=== PATIENT | female | born 1960 | race Caucasian/White ===

== ENCOUNTER 2019-03-13 01:56 | Outpatient (CLI) | payer BC, SELFPAY ==
[2019-03-13 08:47] LABS: RBC 4.57 m/cumm (4.00-5.20)
[2019-03-13 09:48] LABS: ALT 30 U/L (14-59); AST 16 U/L (15-37); Albumin 3.6 g/dL (3.4-5.0); Alkaline Phosphatase 99 U/L (46-116); Anion Gap 12.6 mmol/L (3-11); BUN 13 mg/dL (7-18); Bilirubin, Total 0.5 mg/dL (0.2-1.0); CO2 24.4 mmol/L (21.0-32.0); CREATININE 0.83 mg/dL (0.55-1.02); Calcium 8.9 mg/dL (8.5-10.1); Calculated LDL 115 mg/dL; Chloride 107 mmol/L (98-107); Cholesterol 215 mg/dL (<200); Glucose 109 mg/dL (74-106); HDL Cholesterol 91 mg/dL (40-60); Potassium 4.3 mmol/L (3.5-5.1); Sodium 144 mmol/L (136-145); Total Protein 6.6 g/dL (6.4-8.2); Triglyceride 47 mg/dL (<150)
[2019-03-13 10:35] LABS: TSH 1.29 uIU/mL (0.36-3.74); Vitamin B12 570 pg/mL (193-986)
[2019-03-13 14:57] LABS: FREE T4 0.85 ng/dL (0.76-1.46)
[2019-03-13 17:46] LABS: T3,Free 3.4 pg/mL (2.8-5.3)
== END 2019-03-13 02:16 ==
PROVIDERS: PCP Nurse Practitioner; Visit Provider Naturopath
DX: Z00.00 Encounter for general adult medical examination without abnormal findings (principal); R53.83 Other fatigue; N95.1 Menopausal and female climacteric states
CPT/HCPCS: 36415; 80053; 80061; 82306; 82607; 83735; 84439; 84443; 84481; 85041

== ENCOUNTER 2020-02-25 15:19 | Outpatient (REF) | payer BC, SELFPAY ==
--- NOTE | 2020-02-25 10:35 | PAPFT_PTH ---
PATIENT: Sheela Huntley LOC: SON U#:[id number] AGE/SX: 59/F ROOM: RE02/25/[address]: Karie Johansen DO : 1960 BED: DIS: 02/25/2020 SPEC #: [id number] RECD: 02/25/20 18:40 STATUS: AJ REQ #: [id number] DRU: 02/25/20 10:[address]: Karie Johansen DEPT: [facility] Cytology RECD BY: Ying Gonzalez ENTERED: 02/25/20 18:41 SP TYPE: PAPFT OTHR DR: Kathryn Lopez DO Tissues: 1 - CX/ENDOCX FOR PAP SMEARS Procedures: PAP THIN PREP/UVM Screening HPV DNA PROBE Comments: [id number]
== END 2020-02-25 15:39 ==
LOC: LBN 15:19
PROVIDERS: PCP Student in an Organized Health Care Education/Training Program; Visit Provider Obstetrics & Gynecology
DX: Z12.4 Encounter for screening for malignant neoplasm of cervix (principal); Z11.51 Encounter for screening for human papillomavirus (HPV); Z87.410 Personal history of cervical dysplasia
CPT/HCPCS: 88142; 87624

== ENCOUNTER 2020-03-14 04:16 | Outpatient (CLI) | payer BC, SELFPAY ==
--- NOTE | 2020-03-14 12:30 | DI.MAMMO_ITS ---
EXAM: MG MAMMO SCREENING CLINICAL HISTORY: screening TECHNIQUE: Bilateral full field digital CC and MLO mammographic images were obtained with 3D tomosyn thesis and utilizing computer aided detection (CAD). COMPARISON: Available for comparison. FINDINGS: Masses/Architectural Distortion: None seen. Microcalcifications: No suspicious pleomorphic-type are seen. Skin Thickening/Nipple Retraction: None. IMPRESSION: 1. No significant interval change with no specific features of malignancy noted. 2. Unless there is more urgent need, screening mammography is recommended, as per [place] [employer] guidelines. BI-RADS Category 1 - Negative Breast Density - Category C - Heterogeneously dense Breast density category C or D implies that the patient has dense breast tissue. Dense breast tissue is very common and is not abnormal but dense breast tissue can make it harder to find cancer on a ma mmogram. Also, dense breast tissue may increase their breast cancer risk. This information about the result of the mammogram report was provided to the patient to raise their awareness. Use this report when you speak with the patient about their risks for breast cancer, which includes their family hist ory. At that time, you may recommend for more screening tests (Ultrasound or MRI) as they might be us eful based on their risk. A negative radiographic report should not delay biopsy if a dominant or clinically suspicious mass is present. Up to ten percent of cancers are not identified on mammography. A negative report may reinforce clinical impression. Adenosis and dense breasts may obscure an underlying neoplasm. False positive reports average 6 to 10%. Patient will receive a letter notifying them of these results.
== END 2020-03-14 04:36 ==
PROVIDERS: PCP Student in an Organized Health Care Education/Training Program; Visit Provider Obstetrics & Gynecology
DX: Z12.31 Encounter for screening mammogram for malignant neoplasm of breast (principal)
CPT/HCPCS: 77063; 77067

== ENCOUNTER 2020-04-08 03:16 | Outpatient (CLI) | payer BC, SELFPAY ==
[2020-04-08 09:00] LABS: Anion Gap 5.4 mmol/L (3-11); BUN 15 mg/dL (7-18); CO2 29.6 mmol/L (21.0-32.0); CREATININE 0.9 mg/dL (0.55-1.02); Calcium 9.1 mg/dL (8.5-10.1); Calculated LDL 120 mg/dL (<100); Chloride 104 mmol/L (98-107); Cholesterol 235 mg/dL (<200); Glucose 101 mg/dL (74-106); HDL Cholesterol 103 mg/dL (40-60); Potassium 4.6 mmol/L (3.5-5.1); Sodium 139 mmol/L (136-145); Triglyceride 60 mg/dL (<150)
== END 2020-04-08 03:17 | disposition home or self-care (01) ==
LOC: LBO 03:16
PROVIDERS: PCP Student in an Organized Health Care Education/Training Program; Visit Provider Student in an Organized Health Care Education/Training Program
DX: E86.0 Dehydration (principal); Z13.1 Encounter for screening for diabetes mellitus; Z13.220 Encounter for screening for lipoid disorders
CPT/HCPCS: 36415; 80048; 80061

== ENCOUNTER 2020-10-30 03:44 | Outpatient (CLI) | payer BC, SELFPAY ==
[2020-10-30 10:48] LABS: ALT 26 U/L (14-59); AST 8 U/L (15-37); Alkaline Phosphatase 110 U/L (46-116); Anion Gap 9.7 mmol/L (3-11); BUN 12 mg/dL (7-18); Bilirubin, Total 0.7 mg/dL (0.2-1.0); CO2 27.3 mmol/L (21.0-32.0); CREATININE 0.7 mg/dL (0.55-1.02); Calcium 9.1 mg/dL (8.5-10.1); Chloride 104 mmol/L (98-107); Glucose 110 mg/dL (74-106); Potassium 4.3 mmol/L (3.5-5.1); Sodium 141 mmol/L (136-145); Total Protein 7.1 g/dL (6.4-8.2)
== END 2020-10-30 03:45 | disposition home or self-care (01) ==
LOC: LBO 03:44
PROVIDERS: PCP Student in an Organized Health Care Education/Training Program; Visit Provider Student in an Organized Health Care Education/Training Program
DX: E86.0 Dehydration (principal); K58.9 Irritable bowel syndrome, unspecified
CPT/HCPCS: 36415; 80053

== ENCOUNTER 2021-01-15 12:41 | Outpatient (CLI) | payer BC, SELFPAY ==
--- NOTE | 2021-01-15 09:45 | DI.RAD_ITS ---
Exam(s) XR THUMB LT EXAM: XR THUMB LT CLINICAL HISTORY: Left thumb CMC OA. TECHNIQUE: 2D digital imaging was performed. COMPARISON: None. FINDINGS: BONES: No acute fracture is present. No bony destructive lesion is seen. JOINTS: No dislocation present. Severe narrowing 1st carpal metacarpal joint. Moderate periarticula r spurring. Mild degenerative changes interphalangeal joint. SOFT TISSUE: Normal. IMPRESSION: Moderate to severe degenerative changes at the 1st carpal metacarpal joint. DATA REPOSITORY: RADIATION DOSE DELIVERED:
== END 2021-01-15 12:42 | disposition home or self-care (01) ==
LOC: DIORS 12:41
PROVIDERS: PCP Student in an Organized Health Care Education/Training Program; Referring Provider Student in an Organized Health Care Education/Training Program; Visit Provider Student in an Organized Health Care Education/Training Program
DX: M18.12 Unilateral primary osteoarthritis of first carpometacarpal joint, left hand (principal)
CPT/HCPCS: 73140

== ENCOUNTER 2021-05-06 01:44 | Outpatient (CLI) | payer BC, SELFPAY ==
[2021-05-06 07:51] LABS: HCT 44.4 % (36.0-46.0); HGB 14.4 g/dL (11.2-15.7); MCH 29.9 pg (27.0-33.0); MCHC 32.4 % (32.0-36.0); MCV 92.3 fL (80-95); MPV 9.6 fL (8.0-11.0); Platelet Count 355 10^3/uL (130-400); RBC 4.81 10^6/uL (3.93-5.22); RDW 12.5 % (11.7-14.6); RDW-SD 42.8 fL; WBC 6.14 10^3/uL (4.4-10.8)
[2021-05-06 08:44] LABS: Anion Gap 8.9 mmol/L (3-11); BUN 17 mg/dL (7-18); CO2 29.1 mmol/L (21.0-32.0); CREATININE 0.8 mg/dL (0.55-1.02); Calculated LDL 130 mg/dL (<100); Chloride 106 mmol/L (98-107); Cholesterol 236 mg/dL (<200); Glucose 103 mg/dL (74-106); HDL Cholesterol 92 mg/dL (40-60); Potassium 4.6 mmol/L (3.5-5.1); Sodium 144 mmol/L (136-145); Triglyceride 70 mg/dL (<150)
[2021-05-07 05:44] LABS: Vitamin D 25 Total 43.4 ng/mL (30-100)
== END 2021-05-06 01:45 | disposition home or self-care (01) ==
LOC: LBO 01:44
PROVIDERS: PCP Student in an Organized Health Care Education/Training Program; Visit Provider Student in an Organized Health Care Education/Training Program
DX: R53.83 Other fatigue (principal); Z86.2 Personal history of diseases of the blood and blood-forming organs and certain disorders involving the immune mechanism; Z13.220 Encounter for screening for lipoid disorders; Z63.6 Dependent relative needing care at home; R79.89 Other specified abnormal findings of blood chemistry; K58.9 Irritable bowel syndrome, unspecified
CPT/HCPCS: 36415; 80048; 80061; 82306; 85027; 84443

== ENCOUNTER → 2022-02-18 01:52 | Outpatient (CLI) | payer BC, SELFPAY ==
--- NOTE | 2022-02-18 06:45 | DI.MAMMO_ITS ---
Exam(s) MAMMO SCREENING EXAM: MAMMO SCREENING CLINICAL HISTORY: screening,Z12.39 TECHNIQUE: Bilateral full field digital CC and MLO mammographic images were obtained with 3D tomosyn thesis and utilizing computer aided detection (CAD). COMPARISON: Available for comparison. FINDINGS: Masses/Architectural Distortion: None seen. Microcalcifications: No suspicious pleomorphic-type are seen. Skin Thickening/Nipple Retraction: None. IMPRESSION: 1. No significant interval change with no specific features of malignancy noted. 2. Unless there is more urgent need, screening mammography is recommended, as per [place] [employer] guidelines. BI-RADS Category 1 - Negative Breast Density - Category C - Heterogeneously dense Breast density category C or D implies that the patient has dense breast tissue. Dense breast tissue is very common and is not abnormal but dense breast tissue can make it harder to find cancer on a ma mmogram. Also, dense breast tissue may increase their breast cancer risk. This information about the result of the mammogram report was provided to the patient to raise their awareness. Use this report when you speak with the patient about their risks for breast cancer, which includes their family hist ory. At that time, you may recommend for more screening tests (Ultrasound or MRI) as they might be us eful based on their risk. A negative radiographic report should not delay biopsy if a dominant or clinically suspicious mass is present. Up to ten percent of cancers are not identified on mammography. A negative report may reinforce clinical impression. Adenosis and dense breasts may obscure an underlying neoplasm. False positive reports average 6 to 10%. Patient will receive a letter notifying them of these results.
== END ==
PROVIDERS: PCP Student in an Organized Health Care Education/Training Program; Visit Provider Student in an Organized Health Care Education/Training Program
DX: Z12.31 Encounter for screening mammogram for malignant neoplasm of breast (principal); R92.8 Other abnormal and inconclusive findings on diagnostic imaging of breast
CPT/HCPCS: 77063; 77067

== ENCOUNTER 2022-05-27 04:18 | Outpatient (CLI) | payer BC, SELFPAY ==
[2022-05-27 12:59] LABS: ALT 27 U/L (14-59); AST 15 U/L (15-37); Albumin 3.8 g/dL (3.4-5.0); Alkaline Phosphatase 87 U/L (46-116); Anion Gap 6.6 mmol/L (3-11); BUN 10 mg/dL (7-18); Bilirubin, Total 0.6 mg/dL (0.2-1.0); CO2 29.4 mmol/L (21.0-32.0); CREATININE 0.7 mg/dL (0.55-1.02); Calcium 9.1 mg/dL (8.5-10.1); Chloride 105 mmol/L (98-107); Estimated GFR 99.57 (mL/min/1.73m2); Glucose 102 mg/dL (74-106); Potassium 3.6 mmol/L (3.5-5.1); Sodium 141 mmol/L (136-145); Total Protein 7.1 g/dL (6.4-8.2)
[2022-05-27 13:22] LABS: Calculated LDL 114 mg/dL (<100); Cholesterol 226 mg/dL (<200); HDL Cholesterol 98 mg/dL (40-60); Triglyceride 70 mg/dL (<150)
[2022-05-27 13:43] LABS: Vitamin D 25 Total 34.7 ng/mL (30-100)
== END 2022-05-27 04:19 | disposition home or self-care (01) ==
PROVIDERS: PCP Student in an Organized Health Care Education/Training Program; Visit Provider Student in an Organized Health Care Education/Training Program
DX: Z13.220 Encounter for screening for lipoid disorders (principal); K58.9 Irritable bowel syndrome, unspecified; Z91.89 Other specified personal risk factors, not elsewhere classified; R79.89 Other specified abnormal findings of blood chemistry
CPT/HCPCS: 36415; 80053; 80061; 82306

== ENCOUNTER 2022-10-05 10:39 | Outpatient (CLI) | payer BC, SELFPAY ==
--- NOTE | 2022-10-05 09:15 | DI.RAD_ITS ---
Exam(s) XR CHEST 2V PA LATERAL EXAM: XR CHEST 2V PA LATERAL CLINICAL HISTORY: Persistent cough, R05.3 TECHNIQUE: 2D digital imaging was performed. COMPARISON: No exams were available for comparison FINDINGS: HEART: Normal size. Aorta: Not dilated. PULMONARY VASCULATURE: Normal. LUNGS: Minimal linear atelectasis or scarring medial lingula, otherwise clear. PLEURAL SPACE: No pleural effusion or pneumothorax. BONE:Unremarkable for age. IMPRESSION: No acute abnormality. DATA REPOSITORY: RADIATION DOSE DELIVERED:
== END 2022-10-05 10:59 ==
PROVIDERS: PCP Student in an Organized Health Care Education/Training Program; Visit Provider Family Medicine
DX: R05.3 Chronic cough (principal)
CPT/HCPCS: 71046

== ENCOUNTER 2023-05-10 07:57 | Outpatient (CLI) | payer BC, SELFPAY ==
[2023-05-10 07:58] LABS: HCT 46.3 % (36.0-46.0); HGB 15.6 g/dL (11.2-15.7); MCH 29.6 pg (27.0-33.0); MCHC 33.7 % (32.0-36.0); MCV 88 fL (80-95); MPV 9.6 fL (8.0-11.0); Platelet Count 354 10^3/uL (130-400); RBC 5.27 10^6/uL (3.93-5.22); RDW 12.6 % (11.7-14.6); RDW-SD 40.9 fL; WBC 5.37 10^3/uL (4.4-10.8)
[2023-05-10 08:05] LABS: ALT 38 U/L (14-59); AST 21 U/L (15-37); Albumin 3.9 g/dL (3.4-5.0); Alkaline Phosphatase 98 U/L (46-116); Anion Gap 7.6 mmol/L (3-11); BUN 16 mg/dL (7-18); Bilirubin, Total 0.8 mg/dL (0.2-1.0); CO2 31.4 mmol/L (21.0-32.0); CREATININE 0.9 mg/dL (0.55-1.02); Calcium 9.6 mg/dL (8.5-10.1); Calculated LDL 142 mg/dL (<100); Chloride 102 mmol/L (98-107); Cholesterol 258 mg/dL (<200); Estimated GFR 73.19 (mL/min/1.73m2); Glucose 113 mg/dL (74-106); HDL Cholesterol 103 mg/dL (40-60); Potassium 3.6 mmol/L (3.5-5.1); Sodium 141 mmol/L (136-145); Total Protein 7.6 g/dL (6.4-8.2); Triglyceride 67 mg/dL (<150)
[2023-05-10 08:26] LABS: Vitamin D 25 Total 39.3 ng/mL (30-100)
[2023-05-12 12:54] LABS: Lab Add On Test DONE
[2023-05-12 14:14] LABS: Hemoglobin A1C 5.4 % (<5.7)
== END 2023-05-10 07:58 | disposition home or self-care (01) ==
LOC: LBO 07:57
PROVIDERS: PCP Student in an Organized Health Care Education/Training Program; Visit Provider Student in an Organized Health Care Education/Training Program
DX: K58.9 Irritable bowel syndrome, unspecified (principal); Z91.89 Other specified personal risk factors, not elsewhere classified; Z13.220 Encounter for screening for lipoid disorders; R79.89 Other specified abnormal findings of blood chemistry
CPT/HCPCS: 36415; 80053; 80061; 82306; 85027; 83036

== ENCOUNTER 2023-08-11 07:20 | Outpatient (CLI) | payer BC, SELFPAY ==
[2023-08-11 08:32] LABS: Iron 65 ug/dL (50-170)
[2023-08-11 08:56] LABS: Calculated LDL 123 mg/dL (<100); Cholesterol 239 mg/dL (<200); HDL Cholesterol 104 mg/dL (40-60); Triglyceride 64 mg/dL (<150); Vitamin D 25 Total 43.7 ng/mL (30-100)
[2023-08-11 13:43] LABS: Lab Add On Test DONE
[2023-08-11 13:52] LABS: Anion Gap 11.9 mmol/L (3-11); BUN 14 mg/dL (7-18); CO2 28.1 mmol/L (21.0-32.0); CREATININE 0.8 mg/dL (0.55-1.02); Calcium 9.6 mg/dL (8.5-10.1); Chloride 103 mmol/L (98-107); Glucose 120 mg/dL (74-106); Potassium 4.1 mmol/L (3.5-5.1); Sodium 143 mmol/L (136-145)
[2023-08-11 13:55] LABS: Total Iron Binding Capacity 323 ug/dL (250-450)
== END 2023-08-11 07:21 | disposition home or self-care (01) ==
LOC: LBO 07:20
PROVIDERS: PCP Student in an Organized Health Care Education/Training Program; Visit Provider Student in an Organized Health Care Education/Training Program
DX: Z13.220 Encounter for screening for lipoid disorders (principal); R79.89 Other specified abnormal findings of blood chemistry; Z78.0 Asymptomatic menopausal state; K90.9 Intestinal malabsorption, unspecified; Z13.1 Encounter for screening for diabetes mellitus; Z91.89 Other specified personal risk factors, not elsewhere classified
CPT/HCPCS: 36415; 80048; 80061; 82306; 83540; 83550

== ENCOUNTER 2023-09-30 01:56 | Outpatient (CLI) | payer BC, SELFPAY ==
[2023-09-30 10:30] LABS: Abs Immature Grans 0.02 10^3/uL (0.0-0.06); Absolute Basophil Count 0.06 10^3/uL (0.0-0.2); Absolute Eosinophil Count 0.19 10^3/uL (0.0-0.7); Absolute Lymphocyte Count 1.56 10^3/uL (1.2-3.4); Absolute Monocyte Count 0.63 10^3/uL (0.1-0.8); Absolute Neutrophil Count 4.02 10^3/uL (1.2-6.7); Basophils % 0.9 %; Eosinophils % 2.9 %; HCT 43.6 % (36.0-46.0); HGB 15.2 g/dL (11.2-15.7); Immature Grans % 0.3 %; Lymphocytes % 24.1 %; MCH 30.3 pg (27.0-33.0); MCHC 34.9 % (32.0-36.0); MCV 87 fL (80-95); MPV 9.7 fL (8.0-11.0); Monocytes % 9.7 %; Neutrophils % 62.1 %; Platelet Count 365 10^3/uL (130-400); RBC 5.02 10^6/uL (3.93-5.22); RDW 12.6 % (11.7-14.6); RDW-SD 39.6 fL; WBC 6.48 10^3/uL (4.4-10.8)
[2023-09-30 11:32] LABS: Procalcitonin < 0.1 ng/mL
[2023-09-30 13:15] LABS: Folate > 20.0 ng/mL (8.6-20.0)
[2023-09-30 13:25] LABS: C-Reactive Protein 1.05 mg/dL (<or=0.5)
[2023-10-03 11:48] LABS: IgA 191 mg/dL (85-499); Interpretation (See Note); Tissue Transglutaminase IgA <4.0 CU (<20.0)
[2023-10-05 14:39] LABS: Pancreatic Elastase, F 333 mcg/g
[2023-10-05 19:03] LABS: Calprotectin 320 mcg/g
== END 2023-09-30 01:57 | disposition home or self-care (01) ==
LOC: LBO 01:56
PROVIDERS: PCP Student in an Organized Health Care Education/Training Program; Visit Provider Student in an Organized Health Care Education/Training Program
DX: Z91.89 Other specified personal risk factors, not elsewhere classified (principal); K58.9 Irritable bowel syndrome, unspecified; R19.7 Diarrhea, unspecified; B99.9 Unspecified infectious disease; K51.90 Ulcerative colitis, unspecified, without complications
CPT/HCPCS: 36415; 82784; 83516; 84145; 87329; 82272; 82656; 82746; 83630; 83993; 85025; 86140

== ENCOUNTER 2023-12-01 13:00 | Outpatient (CLI) | payer BC, SELFPAY ==
[2023-12-01 11:52] LABS: HCT 46.3 % (36.0-46.0); HGB 15.5 g/dL (11.2-15.7); MCH 30.3 pg (27.0-33.0); MCHC 33.5 % (32.0-36.0); MCV 90 fL (80-95); MPV 9.7 fL (8.0-11.0); Platelet Count 351 10^3/uL (130-400); RBC 5.12 10^6/uL (3.93-5.22); RDW 12.7 % (11.7-14.6); RDW-SD 41.9 fL
[2023-12-01 13:41] LABS: Anion Gap 7.1 mmol/L (3-11); BUN 14 mg/dL (7-18); CO2 31.9 mmol/L (21.0-32.0); CREATININE 0.8 mg/dL (0.55-1.02); Calcium 9.6 mg/dL (8.5-10.1); Calculated LDL 142 mg/dL (<100); Chloride 101 mmol/L (98-107); Cholesterol 255 mg/dL (<200); Estimated GFR 83.78 (mL/min/1.73m2); Glucose 101 mg/dL (74-106); HDL Cholesterol 99 mg/dL (40-60); Potassium 3.3 mmol/L (3.5-5.1); Sodium 140 mmol/L (136-145); Triglyceride 74 mg/dL (<150); Vitamin D 25 Total 46.2 ng/mL (30-100)
== END 2023-12-01 13:01 | disposition home or self-care (01) ==
LOC: LBO 13:04
PROVIDERS: PCP Student in an Organized Health Care Education/Training Program; Visit Provider Student in an Organized Health Care Education/Training Program
DX: Z13.220 Encounter for screening for lipoid disorders (principal); M00-M99 Diseases of the musculoskeletal system and connective tissue; Z91.89 Other specified personal risk factors, not elsewhere classified; R53.83 Other fatigue
CPT/HCPCS: 36415; 80048; 80061; 82306; 85027; 84443

== ENCOUNTER 2024-06-11 01:57 | Outpatient (CLI) | payer BC, SELFPAY ==
--- NOTE | 2024-06-11 08:15 | DI.MAMMO_ITS ---
Exam(s) MAMMO SCREENING EXAM: MAMMO SCREENING CLINICAL HISTORY: screening,Z00.00,PREVENTATIVE HEALTH CARE TECHNIQUE: Mammograms were interpreted according to the usual protocol including computer analysis w Sferra CAD system, tomosynthesis and C-view imaging. COMPARISON: 2020 and 2021 FINDINGS: The breasts are composed of heterogeneously dense fibroglandular densities, Breast Density category C . No suspicious masses or suspicious microcalcifications are seen. No skin thickening or abnormal axillary lymph nodes are seen. There has been no significant change from prior exams. IMPRESSION: BI-RADS Category 1, Negative mammogram. Yearly screening mammography is recommended. Breast Density Category C, heterogeneously Dense. The mammogram demonstrates the patient's breast tissue is dense. Dense breast tissue is very common a nd is not abnormal but dense breast tissue can make it harder to find cancer on a mammogram. Also, de nse breast tissue may increase breast cancer risk. This information about the result of the mammogram report was provided to the patient to raise their awareness. Use this report when you speak with the patient about their risks for breast cancer, which includes their family history. At that time, you may recommend additional screening tests (Ultrasound or MRI) as they might be useful based on their r isk. A negative radiographic report should not delay biopsy if a dominant or clinically suspicious mass is present. Up to ten percent of cancers are not identified on mammography. A negative report may reinforce clinical impression. Adenosis and dense breasts may obscure an underlying neoplasm. False positive reports average 6 to 10%.
== END 2024-06-11 02:17 ==
LOC: DI 01:57
PROVIDERS: PCP Nurse Practitioner Family; Visit Provider Nurse Practitioner Family
DX: Z00.00 Encounter for general adult medical examination without abnormal findings (principal); Z12.31 Encounter for screening mammogram for malignant neoplasm of breast; R92.333 Mammographic heterogeneous density, bilateral breasts
CPT/HCPCS: 77063; 77067

== ENCOUNTER 2024-11-13 08:06 | Outpatient (CLI) | payer BC, SELFPAY ==
[2024-11-13 08:16] LABS: Hemoglobin A1C 5.4 % (<5.7)
[2024-11-13 09:34] LABS: ALT 28 U/L (14-59); AST 17 U/L (15-37); Albumin 3.8 g/dL (3.4-5.0); Alkaline Phosphatase 95 U/L (46-116); Anion Gap 8.3 mmol/L (3-11); BUN 12 mg/dL (7-18); Bilirubin, Total 0.6 mg/dL (0.2-1.0); CO2 29.7 mmol/L (21.0-32.0); Calcium 9.1 mg/dL (8.5-10.1); Calculated LDL 144 mg/dL (<100); Chloride 104 mmol/L (98-107); Cholesterol 247 mg/dL (<200); Estimated GFR 97.72 (mL/min/1.73m2); Glucose 110 mg/dL (74-106); HDL Cholesterol 90 mg/dL (>or=50); Potassium 3.7 mmol/L (3.5-5.1); Sodium 142 mmol/L (136-145); Total Protein 7.3 g/dL (6.4-8.2); Triglyceride 69 mg/dL (<150); Vitamin D 25 Total 53 ng/mL (30-100)
== END 2024-11-13 08:07 | disposition home or self-care (01) ==
LOC: LBO 08:06
PROVIDERS: PCP Nurse Practitioner Family; Referring Provider Nurse Practitioner Family; Visit Provider Nurse Practitioner Family
DX: Z00.00 Encounter for general adult medical examination without abnormal findings (principal); R79.89 Other specified abnormal findings of blood chemistry
CPT/HCPCS: 80053; 80061; 82306; 83036

== ENCOUNTER 2025-02-10 10:41 | Emergency (ER) | payer BC, SELFPAY ==
[2025-02-10 10:49] VITALS: BP 114/75; PULSE 71; RESP 18; TEMP 36.7; O2SAT 95
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
[2025-02-10] MEDS: predniSONE 20 MG TAB 40 MG PO (11:35)
[2025-02-10 11:38] VITALS: BP 114/75; PULSE 71; RESP 18; TEMP 36.7; O2SAT 95
== END 2025-02-10 11:39 | disposition home or self-care (01) ==
LOC: ER 11:38
PROVIDERS: Emergency Provider Student in an Organized Health Care Education/Training Program; PCP Nurse Practitioner Family
DX: L29.89 Other pruritus (principal)
CPT/HCPCS: 99283 ×2; J7512